=== PATIENT | female | born 2000 | race Caucasian/White ===

== ENCOUNTER 2023-09-29 00:11 | Inpatient (IN) | payer OTHER ==
[~2023-09-29] VITALS: Ht 157.5 cm; Wt 80.0 kg
[2023-09-29] VITALS (35 sets, daily range): BP systolic 98–136; BP diastolic 48–82; PULSE 67–117; TEMP 98–98.2
--- NOTE | 2023-09-29 00:20 | NUR ---
G1 at 40 weeks and 1 day arrives to unit with complaint of contractions every 5 minutes for the last hour and has felt some leakage of fluid. Reports good movement. Reports small amount of dark colored blood. Denies problems this . Clean gown on. Pt oriented to room, call light within reach, bed in low and locked position. US and toco explained and applied. Admission assessment started. Vitals obtained. SVE 3-4/75/-3, membranes felt on exam. Amnitrace negative.
[2023-09-29] MEDS ORDERED: PRENATAL TABLET PO (00:56)
--- NOTE | 2023-09-29 02:30 | NUR ---
Cervix unchanged over since arrival. Patient appears to be coping well with contractions but states they are getting more intense. Category 2 FHR tracing since arrival with intermittent variable and late decelerations. Dr. Linocln on unit and has reviewed FHR tracing.
--- NOTE | 2023-09-29 03:40 | NUR ---
18G IV started in right wrist with 1 attempt. Lactated Ringers bolus infusing to gravity. Admission labs obtained off IV start. Pt updated on plan of care.
--- NOTE | 2023-09-29 04:10 | NUR ---
Pt sitting on birthing ball. Difficulty tracing FHR due to maternal positioning. This RN to bedside to adjust monitors.
[2023-09-29 04:25] LABS: BASO # 0.1 K/mm3 (0.0-0.2); BASO % 0.4 % (0.0-2.0); EOS % 0.2 % (0.0-4.0); GRAN # 11.6 K/mm3 (1.4-6.5); GRAN % 84.3 % (42.2-75.2); HEMATOCRIT 41.3 % (37.0-47.0); HEMOGLOBIN 13.7 g/dl (12.5-16.0); LYMPH # 1.2 K/mm3 (1.2-3.4); LYMPH % 8.9 % (20.0-51.0); MEAN CELL VOLUME 89 fl (80.0-100.0); MEAN CORPUSCULAR HEMOGLOBIN 29 pg (27-31); MEAN CORPUSCULAR HGB CONC 33 g/dl (33.0-37.0); MEAN PLATELET VOLUME 10.1 fl (7.4-10.4); MONO # 0.8 K/mm3 (0.1-0.6); MONO % 5.8 % (1.7-9.3); PLATELET COUNT 372 K/mm3 (130-400); RED BLOOD COUNT 4.66 M/mm3 (4.10-5.30); REDCELL DISTRIBUTION WIDTH-CV 14.3 % (11.5-14.5)
--- NOTE | 2023-09-29 05:15 | NUR ---
Dr. Lincoln at bedside reviewing plan of care with patient.
--- NOTE | 2023-09-29 05:40 | NUR ---
Monitors off. Pt up to bathroom to void.
--- NOTE | 2023-09-29 06:31 | NUR ---
SVE PER PT REQUEST /-2. PT REQUEST EPIDURAL AT THIS TIME.
--- NOTE | 2023-09-29 07:25 | NUR ---
HIMA BAJWA IN ROOM. PT AGREES TO PROCEDURE.
--- NOTE | 2023-09-29 07:35 | NUR ---
PT SITTING UPRIGHT, LR BOLUS INFUSING PER PROTOCOL, PULSE OX IN PLACE 0740 TEST DOSE PER HIMA BAJWA. PT TOLERATED WELL. 0750 PT RETURNED TO WL POSITION. COMFORTABLE IN BED. VS STABLE. EFM CAT 1.
--- NOTE | 2023-09-29 08:16 | NUR ---
AROM OF CLEAR FLUID PER . PT TOLERATED WELL. VS STABLE. EFM CAT 1.
--- NOTE | 2023-09-29 12:44 | NUR ---
[address] ANGELES NOTIFIED. STARTING PUSHING NOW. 1238 DR. ANGELES AT BEDSIDE PUSHING. FHR DECELERATION NOTED. DR. ANGELES RECOMMENDS EPISIOTOMY. PT AGREES AND PERFORMED AT THIS TIME. 1239 OF VIABLE MALE PER . NCX1 NOTED. INFANT PLACED ON MATERNAL ABDOMEN AND CARE ASSUMED BY NURSERY RN. PT TOLERATED WELL. [address] ANGELES. PT TOLERATED WELL. DR. ANGELES BEGINS REPAIR OF SECOND DEGREE EPISIOTOMY. VS STABLE, LOCHIA WNL. ROOM PUT BACK TOGETHER. PT COMFORTABLE IN BED.
--- NOTE | 2023-09-29 14:40 | NUR ---
PT ABLE TO LIFT BOTH LEGS OFF OF BED. AMBULATORY TO BATHROOM, VOID X1, LOCHIA WNL. EPIDURAL CATH REMOVED AT THIS TIME.
[2023-09-30] VITALS: BP 114/60; PULSE 89; TEMP 98
[2023-09-30 05:15] VITALS: BP 111/64; PULSE 79; TEMP 97.9
[2023-09-30 07:53] VITALS: BP 116/67; PULSE 71; TEMP 97.6
[2023-09-30] MEDS ORDERED: MOTRIN 800800 MG/TAB PO (09:40)
--- NOTE | 2023-09-30 14:19 | NUR ---
HEALTH HISTORY GIVEN, FOLLOW UP APPOINTMENT DISCUSSED AND DISCHARGE EDUCATION COMPLETED.
== END 2023-09-30 14:45 | disposition home or self-care (01) | DRG 807 ==
LOC: LDRO 00:11 → LDR 00:40 → LDRO 02:59 → LDR 03:00 → OB 15:04
PROVIDERS: ADMIT Student in an Organized Health Care Education/Training Program
PROC: 10E0XZZ Delivery of Products of Conception, External Approach (ICD-10-PCS; principal; 2023-09-29)
PROC: 0KQM0ZZ Repair Perineum Muscle, Open Approach (ICD-10-PCS; 2023-09-29)
PROC: 0W8NXZZ Division of Female Perineum, External Approach (ICD-10-PCS; 2023-09-29)
PROC: 10907ZC Drainage of Amniotic Fluid, Therapeutic from Products of Conception, Via Natural or Artificial Opening (ICD-10-PCS; 2023-09-29)
PROC: 3E033VJ Introduction of Other Hormone into Peripheral Vein, Percutaneous Approach (ICD-10-PCS; 2023-09-29)
DX: O48.0 Post-term pregnancy (principal); Z37.0 Single live birth; Z3A.40 40 weeks gestation of pregnancy; O76 Abnormality in fetal heart rate and rhythm complicating labor and delivery; O99.824 Streptococcus B carrier state complicating childbirth; O70.1 Second degree perineal laceration during delivery; O69.81X0 Labor and delivery complicated by cord around neck, without compression, not applicable or unspecified
CPT/HCPCS: J2540; J2590; J2795; J7120